=== PATIENT | male | born 1960 | race Caucasian/White ===

== ENCOUNTER 2021-01-04 00:36 | Inpatient (IN) | payer OTHER ==
[~2021-01-04] VITALS: Ht 177.8 cm; Wt 94.7 kg
--- NOTE | 2021-01-04 00:52 | NUR ---
PT BIB [facility] FROM [facility], TRANSFER FOR ACUTE RENAL FAILURE, AND A 12 MM KIDNEY STONE THAT HE'S UNABLE TO PASS. WELL, THE FACILITY IS UNABLE TO DO LITHOTRIPSY AT THIS TIME, AND PT MAY NEED O.R. PT A&OX4, NO ACUTE DISTRESS AT THIS TIME, AND PT STATES PAIN IS A 1/10. PT RECEIVED PAIN MEDS AT PREVIOUS FACILITY. PLACED ON CR MONITOR, AND MD TO BEDSIDE TO EVAL. PT HAS PIV TO LEFT AC 20G, FLUSHED AND IS FLAT, NO REDNESS AND FLUSHES EASILY.
--- NOTE | 2021-01-04 02:24 | NUR ---
PT RESTING COMFORTABLY, NO DISTRESS AT THIS TIME, AND PAIN LEVEL IS 1/10. PT SWABBED FOR COVID, PT TO GO TO O.R. SAMPLE WALKED TO THE LAB. PT TOLERATED WELL.
[2021-01-04] MEDS ORDERED: ONDANSETRON 2MG/ML, 2ML IVPush PRN ×2 (03:00→04:30)
[2021-01-04] MEDS ORDERED: MORPHINE SULFATE 4 MG/ML, 1ML IVPush PRN (03:00)
--- NOTE | 2021-01-04 03:23 | NUR ---
REPORT AND CARE TO KELIN KIM. PT RESTING COMFORTABLY AND IN NO ACUTE DISTRESS.
--- NOTE | 2021-01-04 03:26 | NUR ---
AT THIS TIME, WHEN ASSESING VITAL SIGNS, PT DOES STATE THAT HE HAS A SMALL BIT OF NAUSEA AND JUST FEELS THAT IT'S COMING ON, BUT NOT NAUSEOUS AT THE MOMENT. STATES HE'LL LET US KNOW WHEN HE MIGHT NEED SOME ZOFRAN.
--- NOTE | 2021-01-04 03:42 | NUR ---
DR TEMPLETON TO BEDSIDE TO EVAL PT.
[2021-01-04 04:27] VITALS: BP 117/71
[2021-01-04] MEDS ORDERED: LABETALOL 5MG/ML, 20ML IVPush PRN (04:30)
[2021-01-04] MEDS ORDERED: LACTATED RINGERS 1,000 ML IV SCH (04:30)
[2021-01-04] MEDS ORDERED: ACETAMINOPHEN 325 MG TABLET PO PRN ×3 (04:30→14:00)
[2021-01-04] MEDS ORDERED: TRAZODONE 50MG TABLET PO PRN (04:30)
[2021-01-04] MEDS ORDERED: PHARMACY MAY ADJ FOR RENAL FX MC PRN (04:30)
[2021-01-04] MEDS ORDERED: HYDROmorphone 2 MG/ML, 1ML IVPush PRN ×2 (04:30→07:30)
[2021-01-04 06:54] VITALS: BP 127/79
[2021-01-04] MEDS: HEPARIN 5,000 UNITS/ML, 1ML SQ SCH ×3 (07:30→22:52)
[2021-01-04] MEDS ORDERED: OXYcodone IR 5MG TABLET PO PRN (07:30)
[2021-01-04 08:06] LABS: BASOPHILS % (AUTO) 0 % (0-1); EOSINOPHILS % (AUTO) 2 % (1-7); LYMPHOCYTES % (AUTO) 19 % (22-44); MD NO; MEAN CORPUSCULAR HEMOGLOBIN 31.1 pg (27.5-34.5); MEAN CORPUSCULAR HGB CONC 35.5 g/dL (33.2-36.2); MONOCYTES % (AUTO) 9 % (2-9); NEUTROPHILS % (AUTO) 70 % (42-75); PLATELET COUNT 182 x10^3/uL (130-400); RED BLOOD COUNT 4.69 x10^6/uL (4.38-5.82); RED CELL DISTRIBUTION WIDTH 13.6 % (9.4-14.8)
[2021-01-04 08:15] LABS: ALANINE AMINOTRANSFERASE 17 U/L (12-78); ALBUMIN 3.3 g/dL (3.4-5.0); ANION GAP 5 mmol/L (5-15); CALCIUM 8.2 mg/dL (8.5-10.1); CHLORIDE 108 mmol/L (98-107); CREATININE 1.94 mg/dL (0.7-1.3)
[2021-01-04 08:16] LABS: INTERNATIONAL NORMALIZED RATIO 1.06 (0.93-1.1); PROTHROMBIN TIME 11.3 Seconds (9.6-11.5)
[2021-01-04 08:18] LABS: ALKALINE PHOSPHATASE 74 U/L (45-117); BILIRUBIN,TOTAL 0.8 mg/dL (0.2-1.0); TOTAL PROTEIN 6.6 g/dL (6.4-8.2)
[2021-01-04] MEDS: TAMSULOSIN 0.4 MG CAP.ER.24H PO SCH (09:00)
[2021-01-04] MEDS: SENNA/DOCUSATE TABLET PO SCH (09:00)
[2021-01-04] MEDS: INDOMETHACIN 25 MG CAPSULE PO SCH ×3 (09:00→20:05)
[2021-01-04] MEDS ORDERED: ALLO300T80 PO (09:35)
[2021-01-04] MEDS ORDERED: TAMS-11 PO (09:35)
[2021-01-04] MEDS ORDERED: PRAV20TA PO (09:35)
[2021-01-04] MEDS ORDERED: URSO250T10 PO (09:35)
[2021-01-04] MEDS ORDERED: TRAZ50TA66 PO (09:35)
[2021-01-04 11:26] LABS: MICROSCOPIC AUTO
[2021-01-04] MEDS ORDERED: MIDAZOLAM 1 MG/ML, 2ML ONE (13:05)
[2021-01-04] MEDS ORDERED: FENTANYL PF 100 MCG/2ML ONE ×3 (13:06→14:59)
[2021-01-04] MEDS ORDERED: OMNIPAQUE 350 MG/ML, 50 ML BOTTLE ONE (13:10)
[2021-01-04] MEDS ORDERED: LIDOCAINE-MPF 2% ,5ML ONE (13:40)
[2021-01-04] MEDS ORDERED: DEXAMETHASONE 4 MG/ML, 1ML ONE (13:40)
[2021-01-04] MEDS ORDERED: CEFAZOLIN 1,000 MG ONE (13:40)
[2021-01-04] MEDS ORDERED: ONDANSETRON 2MG/ML, 2ML ONE (13:40)
[2021-01-04] MEDS ORDERED: PROPOFOL 10 MG/ML, 20ML ONE (13:40)
[2021-01-04] MEDS ORDERED: hydrALAzine 20 MG/ML, 1ML IV PRN (14:00)
[2021-01-04] MEDS ORDERED: LABETALOL 5MG/ML, 20ML IV PRN (14:00)
[2021-01-04] MEDS ORDERED: HYDROmorphone 1 MG/ML, 1ML INJ IVPush PRN (14:00)
[2021-01-04] MEDS ORDERED: OXYcodone 5 MG/5 ML ORAL.SOL UDC PO PRN (14:00)
[2021-01-04] MEDS ORDERED: ALBUTEROL SULFATE 2.5 MG/3 ML NPPB PRN (14:00)
[2021-01-04] MEDS ORDERED: PROMETHAZINE 25 MG/ML, 1ML IVPush PRN (14:00)
[2021-01-04] MEDS ORDERED: LORazepam 2 MG/ML, 1ML IVPush PRN (14:00)
[2021-01-04] MEDS ORDERED: CEFTRIAXONE PMX 2GM/50ML 50 ML IVPB SCH (14:00)
[2021-01-04] MEDS ORDERED: MEPERIDINE/PF 25MG/0.5ML IVPush PRN (14:00)
[2021-01-04] MEDS ORDERED: OXYcodone 5 MG/5 ML ORAL.SOL UDC ONE (14:59)
[2021-01-04] MEDS: FENTANYL PF 100 MCG/2ML IV PRN ×2 (15:01→15:05)
[2021-01-04 15:45] VITALS: BP 144/85
[2021-01-04] MEDS ORDERED: PHENAZOPYRIDINE 200 MG TABLET PO PRN (16:00)
[2021-01-04 18:55] VITALS: BP 130/82
[2021-01-05 00:42] VITALS: BP 102/61
[2021-01-05] MEDS ORDERED: LACTATED RINGERS 1,000 ML IV SCH (04:30)
[2021-01-05 04:47] LABS: BASOPHILS % (AUTO) 0 % (0-1); EOSINOPHILS % (AUTO) 0 % (1-7); LYMPHOCYTES % (AUTO) 6 % (22-44); MEAN CORPUSCULAR HEMOGLOBIN 30.7 pg (27.5-34.5); MEAN CORPUSCULAR HGB CONC 35.9 g/dL (33.2-36.2); MEAN PLATELET VOLUME 8.3 fL (7.4-10.4); MONOCYTES % (AUTO) 3 % (2-9); NEUTROPHILS % (AUTO) 91 % (42-75); PLATELET COUNT 181 x10^3/uL (130-400); RED CELL DISTRIBUTION WIDTH 13.6 % (9.4-14.8)
[2021-01-05 04:55] LABS: ANION GAP 7 mmol/L (5-15); CALCIUM 8.4 mg/dL (8.5-10.1); CHLORIDE 107 mmol/L (98-107)
[2021-01-05 04:58] LABS: CREATININE 1.46 mg/dL (0.7-1.3)
[2021-01-05 05:46] LABS: MD SCAN
[2021-01-05] MEDS ORDERED: INDO25CA22 PO (07:23)
[2021-01-05] MEDS: HEPARIN 5,000 UNITS/ML, 1ML SQ SCH (07:30)
[2021-01-05 07:55] VITALS: BP 131/76
[2021-01-05] MEDS ORDERED: CIPR500T87 PO (08:24)
[2021-01-05] MEDS: TAMSULOSIN 0.4 MG CAP.ER.24H PO SCH (08:25)
[2021-01-05] MEDS: INDOMETHACIN 25 MG CAPSULE PO SCH (08:26)
[2021-01-05] MEDS: SENNA/DOCUSATE TABLET PO SCH (08:27)
[2021-01-05] MEDS ORDERED: ALLOPURINOL 100 MG TABLET PO SCH (09:00)
[2021-01-05] MEDS ORDERED: CIPROFLOXACIN 500 MG TABLET PO SCH (09:00)
[2021-01-05 12:41] VITALS: BP 131/80
[2021-01-06] MEDS ORDERED: LACTATED RINGERS 1,000 ML IV SCH (04:30)
== END 2021-01-05 13:09 | disposition home or self-care (01) | DRG 854 ==
LOC: ED 03:57 → EDIP 04:20 → 3N 04:31 → DCLOUNGE 01-05 13:04
PROVIDERS: ADMIT Family Medicine; ATTEND Internal Medicine
PROC: 0TC68ZZ Extirpation of Matter from Right Ureter, Via Natural or Artificial Opening Endoscopic (ICD-10-PCS; 2021-01-04)
PROC: 0T768DZ Dilation of Right Ureter with Intraluminal Device, Via Natural or Artificial Opening Endoscopic (ICD-10-PCS; principal; 2021-01-04 13:00)
DX: A41.9 Sepsis, unspecified organism (principal); N13.6 Pyonephrosis; N17.9 Acute kidney failure, unspecified; E66.9 Obesity, unspecified; Z20.822 Contact with and (suspected) exposure to COVID-19; E78.5 Hyperlipidemia, unspecified; K21.9 Gastro-esophageal reflux disease without esophagitis; M10.9 Gout, unspecified; G47.30 Sleep apnea, unspecified; N21.1 Calculus in urethra; Z87.442 Personal history of urinary calculi; Z87.891 Personal history of nicotine dependence; Z90.49 Acquired absence of other specified parts of digestive tract; Z88.2 Allergy status to sulfonamides; Z88.0 Allergy status to penicillin; Z88.6 Allergy status to analgesic agent; Z88.8 Allergy status to other drugs, medicaments and biological substances; Z68.30 Body mass index [BMI] 30.0-30.9, adult
CPT/HCPCS: 36415; 74018; 76000; 99285; J3490; 80048; 80053; 81001; 85025; 85610; 87040; 87086; 87635; G0378; J0690; J0696; J1100; J1170; J1644; J2250; J2405; J2704; J3010; Q9967; C1769; C2617; J7120